=== PATIENT | male | born 1950 | race American Indian/Alaskan Native ===

== ENCOUNTER 2021-10-17 10:40 | Outpatient (CLI) | payer BC, OTHER ==
--- NOTE | 2021-10-17 11:58 | Cat Scan Report ---
CT ABDOMEN AND PELVIS WITHOUT CONTRAST INDICATION / CLINICAL INFORMATION: C61. prostate mass. Difficulty urinating and rectal pain for sever al months. TECHNIQUE: Axial CT images were obtained through the abdomen and pelvis without IV contrast. Sagittal and casiano l reformatted images. All CT scans at this location are performed using CT dose reduction for ALARA b y means of automated exposure control. COMPARISON: None available. FINDINGS: LOWER CHEST: No significant abnormality. LIVER: No significant abnormality. GALLBLADDER: No significant abnormality. BILE DUCTS: No significant abnormality. PANCREAS: No significant abnormality. SPLEEN: No significant abnormality. ADRENALS: No significant abnormality. RIGHT KIDNEY and URETER: No significant abnormality. LEFT KIDNEY and URETER: No significant abnormality. STOMACH and SMALL BOWEL: No significant abnormality. COLON: No significant abnormality. No significant abnormality is identified involving the rectum. APPENDIX: No significant abnormality. PERITONEUM: No free fluid. No free air. No fluid collection. LYMPH NODES: No significant adenopathy. AORTA and ARTERIES: No significant abnormality. IVC and VEINS: No significant abnormality. URINARY BLADDER: There is mild diffuse bladder wall thickening which could represent trabeculation or be related to cystitis. No filling defect or bladder stones. REPRODUCTIVE ORGANS: The prostate gland is mildly enlarged measuring 5.6 cm in diameter and contains multiple radiotherapy beads. ADDITIONAL FINDINGS: Small umbilical hernia containing fat. SKELETAL SYSTEM: Borderline to mild osteopenia is suspected. Mild lumbar spondylosis is noted. No monica dence for suspicious bone lesion or fracture. IMPRESSION: Mild diffuse bladder wall thickening consistent with trabeculation or possibly cystitis. Mild prostatomegaly. No evidence for visceral mass or adenopathy. Mild multilevel lumbar spondylosis. Small umbilical hernia containing fat. Signer Name: Jose Zuñiga Jr, MD Signed: 10/17/2021 11:53 AM Workstation Name: [id number]
== END 2021-10-17 10:41 | disposition home or self-care (01) ==
LOC: CT 10:40
PROVIDERS: ATTEND Urology
DX: C61 Malignant neoplasm of prostate (principal); N32.89 Other specified disorders of bladder
CPT/HCPCS: 74176

== ENCOUNTER 2021-11-30 09:39 | Day surgery (SDC) | payer BC, MEDICARE ==
[2021-11-28 13:37] LABS: Calcium 9.4 mg/dL (8.4-10.2)
[2021-11-28 14:55] LABS: Hematocrit 41.2 % (35.5-45.6); Mean Corpuscular HGB Conc 34 % (32-34); Mean Corpuscular Volume 94 fl (84-94); Platelet Count 215 K/mm3 (140-440); Red Blood Count 4.39 M/mm3 (3.65-5.03); Red Cell Distribution Width 12.5 % (13.2-15.2)
[2021-11-30] MEDS ORDERED: LACTATED RINGERS 1,000 ML ONE (09:53)
[2021-11-30] MEDS ORDERED: MIDAZOLAM 2 MG/2 ML INJ ONE (10:30)
--- NOTE | 2021-11-30 10:30 | Anesthesia Day of Surgery ---
Anesthesia Day of Surgery - Day of Surgery Patient Examined: Yes Patient H&P Reviewed: Yes Patient is NPO: Yes
--- NOTE | 2021-11-30 10:31 | Anesthesia Consultation ---
Anesthesia Consult and Med Hx Date of service: 11/30/21 - Airway Anesthetic Teeth Evaluation: Good, Caps ROM Head & Neck: Adequate Mental/Hyoid Distance: Adequate Mallampati Class: Class II Intubation Access Assessment: Good - Pre-Operative Health Status ASA Pre-Surgery Classification: ASA3 Proposed Anesthetic Plan: General - Pulmonary Hx Smoking: Yes (FORMER. QUIT IN 2013.) Hx Sleep Apnea: No (REYNALDO PRE SCREEN HIGH RISK) - Cardiovascular System Hx Hypertension: Yes - Central Nervous System Hx Back Pain: Yes Hx Psychiatric Problems: Yes (Anxious) - Gastrointestinal Hx Gastroesophageal Reflux Disease: No - Endocrine Hx Renal Disease: Yes (CRI) - Hematic Hx Sickle Cell Disease: No - Other Systems Hx Alcohol Use: Yes ("A COUPLE OF DRINKS PER WEEK.")
[2021-11-30] MEDS ORDERED: ONDANSETRON 4 MG/2 ML INJ IV PRN (11:00)
[2021-11-30] MEDS ORDERED: MIDAZOLAM 2 MG/2 ML INJ IV NR (11:00)
[2021-11-30] MEDS ORDERED: HYDROmorphone 0.5 MG/0.5 ML INJ IV PRN (11:00)
[2021-11-30] MEDS ORDERED: LACTATED RINGERS 1,000 ML IV SCH (11:00)
[2021-11-30] MEDS ORDERED: ONDANSETRON 4 MG/2 ML INJ ONE (11:53)
[2021-11-30] MEDS ORDERED: LIDOCAINE MPF (2%) 20 MG/1 ML VIAL 5 ML ONE (11:53)
[2021-11-30] MEDS ORDERED: fentaNYL 100 MCG/2 ML INJ ONE (11:54)
[2021-11-30] MEDS ORDERED: propofoL 200 MG/20 ML VIAL IV ONE (11:54)
[2021-11-30] MEDS ORDERED: ceFAZolin/Water 2 GM/20 ML 2 GM/20 ML SYRINGE IV ONE (11:56)
[2021-11-30] MEDS ORDERED: ceFAZolin/STERILE WATER 2 GM/20 ML SYRINGE IV NR (12:00)
[2021-11-30] MEDS ORDERED: GENTAMICIN 160 MG in SODIUM CHLORIDE 0.9% 100 ML IV SCH (12:00)
[2021-11-30] MEDS ORDERED: GENTAMICIN/NS 80 MG/100 ML 100 ML IV ONE ×2 (12:01→12:14)
[2021-11-30] MEDS ORDERED: KETOROLAC 30 MG/1 ML INJ ONE (13:32)
--- NOTE | 2021-11-30 13:35 | Post Operative Note ---
Date of procedure: 11/30/21 Pre-op diagnosis: cap stricture Post-op diagnosis: same Findings: 1.5 cm dense stricture Procedure: pus an d cysto rpgs Anesthesia: GETA Surgeon: MEGHANN CARY Estimated blood loss: minimal Pathology: list (prostate) Specimen disposition: to lab Condition: stable Disposition: PACU
--- NOTE | 2021-11-30 13:37 | Discharge Summary ---
Short Stay Discharge Plan Activity: other (no straininh ) Weight Bearing Status: Full Weight Bearing Diet: low fat, low cholesterol, low salt Special Instructions: other (inc fluids ) Durable Medical Equipment Needed Upon Discharge: other (home with catheter ) Follow up with: PRIMARY CARE, [Primary Care Provider] - 7 Days MEGHANN CARY MD [Staff Physician] - 7 Days
[2021-11-30] MEDS: HYDROmorphone 0.5 MG/0.5 ML INJ IV PRN ×2 (13:43→14:10)
[2021-11-30] MEDS ORDERED: WATER FOR IRRIG STERILE 2000 ML IR ONE (13:43)
[2021-11-30] MEDS ORDERED: FUROSEMIDE 40 MG/4 ML INJ ONE (13:44)
[2021-11-30] MEDS ORDERED: WATER FOR IRRIG STERILE 1,500 ML BOTTLE IR ONE (13:52)
--- NOTE | 2021-11-30 14:10 | Ultrasound Report ---
Transrectal Ultrasound HISTORY: ELEVATED PSA. TECHNIQUE: Grayscale and color Doppler imaging performed. COMPARISON: None FINDINGS: Transrectal ultrasound guidance was provided by radiology during ultrasound-guided prostate biopsy by urology. The prostate gland measures 4.1 x 3.0 x 4.1 cm. Prostate volume measures 26.1 cc. IMPRESSION: Successful ultrasound-guided prostate biopsy. Signer Name: Jose Zuñiga Jr, MD Signed: 11/30/2021 2:06 PM Workstation Name: [id number]
--- NOTE | 2021-11-30 14:52 | Fluoroscopy Report ---
INTRAOPERATIVE FLUOROSCOPY: RETROGRADE URETEROGRAM INDICATION / CLINICAL INFORMATION: BILAT RPG W/ STINT PLACEMENT. TECHNIQUE: Intraoperative spot images were obtained during the procedure. FINDINGS: Intraoperative spot images were obtained during retrograde exam. The initial study shows contrast in the left collecting system. There is a smooth round filling defect noted in the distal ureter which l ikely represents an air bubble though the possibility that this could represent a stone is included i n the differential. Subsequent image shows contrast in the right renal collecting system. Final image shows scope and wire in the bladder. Fluoroscopy Time: 32 seconds. Fluoroscopy Images: 6. Signer Name: Juan Rodriguez MD Signed: 11/30/2021 2:48 PM Workstation Name: [id number]
--- NOTE | 2021-11-30 15:05 | Operative Report ---
DATE OF SURGERY: 11/30/2021 PREOPERATIVE DIAGNOSES: Severe obstructive symptoms, history of prostate cancer, history of radiation. POSTOPERATIVE DIAGNOSES: Severe obstructive symptoms, history of prostate cancer, history of radiation with severe stricture disease and increasing PSA. PROCEDURES: Cystoscopy, direct vision internal urethrotomy retrograde, insertion of Councill catheter, prostate biopsies under ultrasound guidance. SURGEON: Chucky Larkin MD ANESTHESIA: General. FINDINGS: This is a gentleman with increasing PSA post-radiation. He also has severe difficulty voiding, now presents for cystoscopic evaluation. DESCRIPTION OF PROCEDURE: The patient was brought to the operating room and placed on the operating table. Following induction of anesthesia, placed in lithotomy position, prepped and draped in usual sterile fashion. Cystourethroscopy showed a dense stricture. It was about 1.5 cm. A wire was coiled in the bladder under fluoroscopic guidance and DVIU was carried out. Bladder was 1+ trabeculated. There was some mild hydroureteral dilatation bilaterally. We did the best we could, the cystoscopy room was closed down, so we did it with fluoroscopy. The calices were preserved, though more on the left than the right. We did not see any persistent filling defects under fluoroscopy. Note, there were no tumors seen and the orifices were quite small. A Councill catheter was placed. Using the ultrasound-guided probe, 4 biopsies, approximately 26 gram prostate, 4 in the right and 4 in the left, tolerated the procedure well. We used the rectal plug. There was minimal rectal bleeding, brought to recovery in stable condition. Carbajal catheter will be kept for about a week. It irrigated freely. TID: [id number] RECEIPT: [id number] DANIELA/NARINDER/IQB
[2021-11-30 15:30] VITALS: BP 149/86
--- NOTE | 2021-11-30 18:59 | Post Anesthesia Evaluation ---
- Post Anesthesia Evaluation Patient Participated: Yes Airway Patent: Yes Stable Respiratory Function: Yes Nausea/Vomiting: No Temp > 96.8F: Yes Pain Manageable: Yes Adequeate Hydration: Yes Anesthesia Complications: No Block Receding Appropriately: Not Applicable Patient on Ventilator: No
== END 2021-11-30 15:05 | disposition home or self-care (01) ==
LOC: OR 09:39
PROVIDERS: ATTEND Urology
DX: C61 Malignant neoplasm of prostate (principal); N40.0 Benign prostatic hyperplasia without lower urinary tract symptoms; N28.89 Other specified disorders of kidney and ureter; R31.9 Hematuria, unspecified; R97.20 Elevated prostate specific antigen [PSA]; H40.9 Unspecified glaucoma; I10 Essential (primary) hypertension; F41.9 Anxiety disorder, unspecified; Z72.89 Other problems related to lifestyle; Z20.822 Contact with and (suspected) exposure to COVID-19; Z79.899 Other long term (current) drug therapy; Z90.79 Acquired absence of other genital organ(s); Z98.890 Other specified postprocedural states
CPT/HCPCS: 36415; 52276; 55700; 74420; 76872; 80048; 85027; 88305; 88344; C1758; C1769; J0690; J1170; J1580; J1885; J1940; J2250; J2405; J2704; J3010; J7120; U0003

== ENCOUNTER 2021-12-01 02:21 | Emergency (ER) | payer BC, MEDICARE ==
[2021-12-01] MEDS ORDERED: HYDROmorphone 1 MG/1 ML INJ IV ONE ×2 (03:30→10:20)
[2021-12-01] MEDS ORDERED: HYDROmorphone 1 MG/1 ML INJ ONE (03:32)
[2021-12-01] MEDS ORDERED: HYDROmorphone 2 MG/1 ML INJ IV ONE ×2 (03:35→05:53)
--- NOTE | 2021-12-01 03:39 | Emergency Department Report ---
<JUANITO NIEVES - Last Filed: 12/01/21 06:14> ED Male HPI - General Chief complaint: Urogenital-Male Stated complaint: PARTIALLY DISLODGED REY Time Seen by Provider: 12/01/21 03:13 Source: EMS Mode of arrival: Stretcher Limitations: No Limitations - History of Present Illness Initial comments: 71 yo M with history of BHP s/p TURP who present with urethral pain and bloody urine since post procedure yesterday afternoon. Pt denies any fever or chills. No other modifying or associated factors. - Related Data Home Medications Medication Instructions Recorded Confirmed Last Taken Primidone 50 mg PO BID 11/25/21 11/28/21 Unknown amLODIPine 5 mg PO DAILY 11/25/21 11/28/21 Unknown Tamsulosin [Flomax] 0.4 mg PO QDAY 11/28/21 11/28/21 Unknown Allergies Allergy/AdvReac Type Severity Reaction Status Date / Time No Known Allergies Allergy Verified 11/28/21 16:09 ED Review of Systems Comment: All other systems reviewed and negative Gastrointestinal: abdominal pain (suprapubic tenderness ) Genitourinary: hematuria ED Past Medical Hx - Past Medical History Previous Medical History?: Yes Hx Hypertension: Yes Hx Renal Disease: Yes (CRI) Hx Sickle Cell Disease: No - Surgical History Past Surgical History?: Yes Additional Surgical History: TERP 11/30/21 - Social History Smoking Status: Never Smoker Substance Use Type: None - Medications Home Medications: Home Medications Medication Instructions Recorded Confirmed Last Taken Type Primidone 50 mg PO BID 11/25/21 11/28/21 Unknown History amLODIPine 5 mg PO DAILY 11/25/21 11/28/21 Unknown History Tamsulosin [Flomax] 0.4 mg PO QDAY 11/28/21 11/28/21 Unknown History ED Physical Exam - General Limitations: No Limitations General appearance: alert, in no apparent distress - Head Head exam: Present: normal inspection - Eye Eye exam: Present: normal appearance Pupils: Present: normal accommodation - ENT ENT exam: Present: normal exam, normal orophraynx, mucous membranes moist - Respiratory Respiratory exam: Present: normal lung sounds bilaterally. Absent: respiratory distress, accessory muscle use - Cardiovascular Cardiovascular Exam: Present: regular rate, normal rhythm, normal heart sounds - GI/Abdominal GI/Abdominal exam: Present: soft, tenderness (suprapubic tenderness ), normal bowel sounds. Absent: distended - Extremities Exam Extremities exam: Present: normal inspection, normal capillary refill. Absent: tenderness, pedal edema - Back Exam Back exam: Absent: tenderness - Neurological Exam Neurological exam: Present: alert, oriented X3 - Psychiatric Psychiatric exam: Present: normal affect, normal mood - Skin Skin exam: Present: warm, normal color ED Course - Reevaluation(s) Reevaluation #1: 12/01/21 06:[address] Curiel to follow up on repeat chemistry at 10 AM and for reevaluation before discharge for patient to follow up with his Urologist as planned. ED Medical Decision Making - Lab Data Result diagrams: 12/01/21 03:42 12/01/21 03:42 - Medical Decision Making here with hematuria s/p TURP with history of BPH-- will go ahead and order pain medication and CBC, CMP and coag level-- Pt reports feeling much better after initial dilaudid. Lab reviewed and noted slightly elevated BUN/Cr--and K+ at 5.6 mg/dl --compared to November 28, 2021 that was 19/1.5 with potassium of 4.7--this is consistent with mild renal insufficiency--this could be as a result of dehydration so will start patient on 1 L IV fluid x1 and give glucose D50 and insulin regular 5 units SQ and 5 units IV x 1-- Pt will be signed out to Dr Curiel with lab rechecked at 10 am with reevaluation. ED Disposition Clinical Impression: S/P TURP (status post transurethral resection of prostate) Hematuria Qualifiers: Hematuria type: gross Qualified Code(s): R31.0 - Gross hematuria Disposition: 30 STILL A PATIENT Does the pt Need Aspirin: No Condition: Stable Instructions: Transurethral Resection of the Prostate, Dehydration, Adult, [id number] Referrals: PRIMARY CARE, [Primary Care Provider] - 3-5 Days <NERIS CURIEL - Last Filed: 12/01/21 12:56> ED Review of Systems ROS: Stated complaint: PARTIALLY DISLODGED REY Other details as noted in HPI ED Course Vital Signs 12/01/21 12/01/21 02:50 05:02 Temperature 97.7 F Pulse Rate 71 Respiratory 16 Rate Blood Pressure 149/86 O2 Sat by Pulse 97 100 Oximetry ED Medical Decision Making - Lab Data Result diagrams: 12/01/21 03:42 12/01/21 03:42 - Medical Decision Making contacted urology , who came to bedside and irrigated the catheter , clear drainage , changed the bag and will see urology OP in his regular appt pt refused second blood work Critical care attestation.: If time is entered above; I have spent that time in minutes in the direct care of this critically ill patient, excluding procedure time. ED Disposition Is pt being admited?: No Does the pt Need Aspirin: No
[2021-12-01 04:02] LABS: Basophils % (Auto) 0.8 % (0.0-1.8); Eosinophils # (Auto) 0.1 K/mm3 (0.0-0.4); Eosinophils % (Auto) 2.2 % (0.0-4.3); Hematocrit 40.4 % (35.5-45.6); Lymphocytes # (Auto) 1.1 K/mm3 (1.2-5.4); Lymphocytes % (Auto) 20.5 % (13.4-35.0); Mean Corpuscular HGB Conc 35 % (32-34); Mean Corpuscular Volume 93 fl (84-94); Monocytes # (Auto) 0.7 K/mm3 (0.0-0.8); Monocytes % (Auto) 14.4 % (0.0-7.3); Platelet Count 199 K/mm3 (140-440); Red Blood Count 4.33 M/mm3 (3.65-5.03); Red Cell Distribution Width 12.9 % (13.2-15.2)
[2021-12-01 04:09] LABS: INR 0.84 (0.87-1.13)
[2021-12-01 04:18] LABS: Albumin 4.3 g/dL (3.9-5)
[2021-12-01] MEDS ORDERED: DEXTROSE 50% IN WATER (25GM) 50 ML SYRINGE IV ONE (06:20)
[2021-12-01] MEDS ORDERED: SODIUM CHLORIDE 0.9% 1000 ML 1,000 ML IV ONE ×2 (06:20→12:00)
[2021-12-01] MEDS ORDERED: INSULIN REGULAR, HUMAN 100 UNITS/1 ML SUB-Q ONE (06:21)
[2021-12-01] MEDS ORDERED: INSULIN REGULAR, HUMAN 100 UNITS/1 ML IV ONE (06:21)
[2021-12-01] MEDS ORDERED: SODIUM POLYSTYRENE 15 GM/60 ML ORAL LIQD PO ONE (06:33)
[2021-12-01 08:41] LABS: Bilirubin,Urine Negative (Negative); Color,Urine Amber (Yellow)
[2021-12-01 08:43] LABS: Blood,Urine 3+ (Negative); Protein,Urine >2000 mg dL mg/dL (Negative)
[2021-12-01 09:26] LABS: RBC,Urine < 1.0 /HPF (0.0-6.0); WBC,Urine < 1.0 /HPF (0.0-6.0)
[2021-12-01] MEDS ORDERED: INSULIN REGULAR, HUMAN 100 UNITS/1 ML SUB-Q SCH (11:00)
[2021-12-01] MEDS ORDERED: INSULIN REGULAR, HUMAN 100 UNITS/1 ML IV SCH (11:00)
[2021-12-01] MEDS ORDERED: SODIUM POLYSTYRENE 15 GM/60 ML ORAL LIQD PO SCH (11:00)
[2021-12-01] MEDS ORDERED: DEXTROSE 50% IN WATER (25GM) 50 ML SYRINGE IV SCH (11:00)
[2021-12-01] MEDS ORDERED: MORPHINE 4 MG/1 ML INJ IV ONE (13:42)
[2021-12-01 16:23] VITALS: BP 141/78
--- NOTE | 2021-12-02 08:53 | Electrocardiograph Report ---
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
== END 2021-12-01 16:25 | disposition home or self-care (01) ==
LOC: ED 02:21
DX: R31.0 Gross hematuria (principal); N42.89 Other specified disorders of prostate; I10 Essential (primary) hypertension
CPT/HCPCS: 36415; 80053; 81001; 82962; 85025; 85610; 85730; 93005; 96372; 96374; 96375; 96376; 99284; J1170; J2270; J3490; J7030; 99283; Q9967; J1815